=== PATIENT | male | born 1960 | race Caucasian/White ===

== ENCOUNTER 2017-05-27 11:27 | Emergency (ER) | END 2017-05-27 14:44 | disposition home or self-care (01) | DX: M25.561 Pain in right knee (principal); M25.562 Pain in left knee; M17.0 Bilateral primary osteoarthritis of knee; F17.210 Nicotine dependence, cigarettes, uncomplicated | CPT/HCPCS: 73562; 93970; Z7502 ==

== ENCOUNTER 2019-08-05 13:18 | Emergency (ER) | payer OTHER ==
[~2019-08-05] VITALS: Ht 185.4 cm; Wt 88.8 kg
[~2019-08-05 13:18] MED LIST: ALBU18HF INHALATION; ALBU2.5V3 NEB; ALBU8.5H8 INH; ALBU90AE INHALATION; ASPI-817 PO; ATOR40TA68 PO; ATRO INH; AZIT250T PO; FLUT1BLS INHALATION; LEVO750T25 PO; LISI-471 PO; MED4DP PO; PRED20TA PO; RTPRO NEB; TRAM50TA2 PO
[2019-08-05 13:19] VITALS: Ht 185.4 cm; Wt 88.8 kg
[2019-08-05 14:53] VITALS: BP 129/86; PULSE 82; RESP 16
[2019-08-05] MEDS ORDERED: ASPIRIN 325 MG TAB PO ONE (15:00)
== END 2019-08-05 14:56 | disposition home or self-care (01) ==
LOC: E/R 13:18
DX: H53.132 Sudden visual loss, left eye (principal); I10 Essential (primary) hypertension; F17.210 Nicotine dependence, cigarettes, uncomplicated; R40.2142 Coma scale, eyes open, spontaneous, at arrival to emergency department; R40.2362 Coma scale, best motor response, obeys commands, at arrival to emergency department; R40.2252 Coma scale, best verbal response, oriented, at arrival to emergency department; Z79.82 Long term (current) use of aspirin
CPT/HCPCS: 36415; 70450; 71045; 76536; 80048; 80061; 80307; 81001; 82962; 83036; 84484; 85025; 85610; 85730; Z7502; Z7610